=== PATIENT | male | born 1935 | race Caucasian/White ===

== ENCOUNTER 2017-05-12 16:20 | Emergency (ER) | payer MEDICARE, BC ==
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
[2017-05-12 18:02] LABS: CHLORIDE,CL 102 mmol/L (98-115); SODIUM,NA 139 mmol/L (136-145)
[2017-05-12] MEDS ORDERED: LORazepam 2 MG/ML SDV ONE (19:41)
[2017-05-12] MEDS ORDERED: Albuterol/Ipratropium 3.0-0.5 MG/3 ML Neb Soln ONE (20:22)
== END 2017-05-12 19:45 ==
LOC: KA.ED 16:20
DX: R56.9 Unspecified convulsions (principal); R41.82 Altered mental status, unspecified; Z79.82 Long term (current) use of aspirin; Z79.899 Other long term (current) drug therapy; Z88.5 Allergy status to narcotic agent; Z88.8 Allergy status to other drugs, medicaments and biological substances; Z94.84 Stem cells transplant status
CPT/HCPCS: 36415; 70450; 71010; 80053; 81001; 82550; 82553; 84484; 85025; 85610; 85730; 93005; 99284; 99285